=== PATIENT | female | born 1945 | race Caucasian/White ===

== ENCOUNTER 2019-05-18 09:56 | Day surgery (SDC) | payer MEDICARE, BC ==
[~2019-05-18 09:56] MED LIST: Lactated Ringers 1,000 ML IV SCH; Lidocaine 1%/Sod Bicarbonate in NS 8.4% 1 ML Syringe IDERM PRN; Sodium Chloride 0.9% 10 ML Syringe FLUSH PRN
[2019-05-18] MEDS ORDERED: Propofol 200 MG/20 ML SDV ONE ×2 (09:58→11:31)
[2019-05-18] MEDS ORDERED: Lidocaine 1% 4 ML ONE (09:59)
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
[2019-05-18] MEDS ORDERED: fentaNYL 100 MCG/2 ML SDV ONE (10:56)
--- NOTE | 2019-05-18 11:49 | PCM48HPAN ---
Post Anesthesia Note - EVALUATION WITHIN 48HRS OF ANESTHETIC Vital Signs in Normal Range: Yes Patient Participated in Evaluation: Yes Respiratory Function Stable: Yes Airway Patent: Yes Cardiovascular Function Stable: Yes Hydration Status Stable: Yes Pain Control Satisfactory: Yes Nausea and Vomiting Control Satisfactory: Yes Mental Status Recovered: Yes Pulse Rate: 67 SaO2: 95 Resp Rate: 12 Temperature: 98 F Blood Pressure: 151/75
[2019-05-18 12:32] VITALS: BP 162/72
--- NOTE | 2019-05-18 13:37 | OR ---
DATE OF OPERATION: 05/18/2019 SURGEON: Deniz Young MD PREOPERATIVE DIAGNOSIS: Strong family history of colon cancer. POSTOPERATIVE DIAGNOSIS: 1. Strong family history of colon cancer. 2. Diverticulosis. OPERATION PERFORMED: Screening colonoscopy. FINDINGS: Diverticulosis. She had an excellent bowel prep. Her diverticulosis was mostly concentrated in the left colon. I found no polyps. ANESTHESIA: Monitored anesthesia. COMPLICATIONS: None. ESTIMATED BLOOD LOSS: None. PATHOLOGY: None. DISPOSITION: Stable at the end of the procedure. INDICATION: The patient is a 73-year-old female with 3 primary relatives with the diagnosis of colon cancer. She is here for screening. She was fully informed of the major risks, benefits, and alternatives. Please see my H and P for further details of that discussion. She gave informed consent to what was done. DESCRIPTION OF PROCEDURE: The patient was brought to the Gastro suite and placed in the left lateral decubitus position. She was given monitored anesthesia. A digital rectal exam was performed with copious lubrication. This was unremarkable. I then introduced the colonoscope into the rectum. I advanced the scope with gentle forward pressure keeping the lumen in view at all times. I identified the cecum. The cecum was documented photographically. I slowly investigated the mucosa of the colon from the cecum back to the anus in an exam lasting 6 minutes. A thorough and careful examination failed to demonstrate polyps; however, I did note diverticulosis as described above. At the end of the procedure, the scope was withdrawn. She was awakened from anesthesia and moved to Recovery in stable condition. PLAN: She will need another colonoscopy in 5 years. MMODAL /[id number]
== END 2019-05-18 12:27 | disposition home or self-care (01) ==
LOC: JD.SDS 09:56
PROVIDERS: ATTEND Surgery
DX: Z12.11 Encounter for screening for malignant neoplasm of colon (principal); K57.30 Diverticulosis of large intestine without perforation or abscess without bleeding; Z80.0 Family history of malignant neoplasm of digestive organs; I10 Essential (primary) hypertension; E03.9 Hypothyroidism, unspecified; R09.89 Other specified symptoms and signs involving the circulatory and respiratory systems; R13.10 Dysphagia, unspecified; R94.5 Abnormal results of liver function studies; R00.0 Tachycardia, unspecified; Z87.891 Personal history of nicotine dependence; Z79.899 Other long term (current) drug therapy; Z91.048 Other nonmedicinal substance allergy status; Z98.890 Other specified postprocedural states
CPT/HCPCS: 00812; J2001; J2704; J3010; J7120